=== PATIENT | female | born 1955 | race Hispanic/Latino ===

== ENCOUNTER 2025-04-06 06:27 | Outpatient (RCR) | payer OTHER ==
[2025-04-06] MEDS ORDERED: LISINOPRIL5 MG (13:15)
[2025-04-06] MEDS ORDERED: METFORMIN HCL500 MG (13:15)
[2025-04-06] MEDS ORDERED: ROSUVASTATIN CAL5 MG (13:15)
[2025-04-06] MEDS ORDERED: MECLIZINE HCL25 MG PO (16:05)
== END 2025-05-03 ==
LOC: PT 06:27
PROVIDERS: ATTEND Specialist
DX: M17.12 Unilateral primary osteoarthritis, left knee (principal); M62.81 Muscle weakness (generalized)